=== PATIENT | female | born 1985 | race Caucasian/White ===

== ENCOUNTER 2016-03-16 17:01 | Emergency (ER) | payer MEDICAID ==
[2012-11-17 21:42] VITALS: BMI 29.4
[~2016-03-16 17:01] MED LIST: FLAGYL500 MG PO; LO OVRAL; MINOCIN100 MG PO; MOTRIN600 MG PO; PERCOCET 2.5/321 TAB PO; VICODIN 5/500 T1 TAB PO; [UNRECOGNIZED DRUG - OTHER]
== END 2016-03-16 18:06 | disposition left against medical advice (07) ==
LOC: D.ER 17:01
DX: G89.18 Other acute postprocedural pain (principal)

== ENCOUNTER 2018-03-04 10:44 | Emergency (ER) | payer MEDICAID ==
[2018-03-04 10:47] VITALS: Ht 162.6 cm
[2018-03-04] MEDS ORDERED: TOPAMAX50 MG PO (10:48)
[2018-03-04] MEDS ORDERED: ZOLOFT25 MG PO (10:49)
[2018-03-04] MEDS ORDERED: PHENERGAN25 MG RC (10:49)
[2018-03-04] MEDS ORDERED: ASPIRIN81 MG (10:49)
[2018-03-04] MEDS ORDERED: KLONOPIN1 MG PO (10:49)
[2018-03-04] MEDS ORDERED: CLEOCIN HCL300 MG PO (12:09)
[2018-03-04] MEDS ORDERED: IBUPROFEN800 MG PO (12:09)
[2018-03-04 12:54] VITALS: BP 128/78
== END 2018-03-04 12:55 | disposition home or self-care (01) ==
LOC: D.ER 10:44
DX: J02.9 Acute pharyngitis, unspecified (principal); S00.81XA Abrasion of other part of head, initial encounter; L08.9 Local infection of the skin and subcutaneous tissue, unspecified; X58.XXXA Exposure to other specified factors, initial encounter; Y93.89 Activity, other specified; Y92.89 Other specified places as the place of occurrence of the external cause

== ENCOUNTER 2018-04-11 21:33 | Emergency (ER) | payer MEDICAID ==
[~2018-04-11] VITALS: Ht 162.6 cm; Wt 71.8 kg
[~2018-04-11 21:33] MED LIST changes: +ASPIRIN81 MG; +CLEOCIN HCL300 MG PO; +IBUPROFEN800 MG PO; +KLONOPIN1 MG PO; +PHENERGAN25 MG RC; +TOPAMAX50 MG PO; +ZOLOFT25 MG PO
[2018-04-11 21:48] VITALS: Ht 162.6 cm; Wt 71.8 kg
[2018-04-12] MEDS ORDERED: TORADOL10 MG PO (00:18)
[2018-04-12 01:03] VITALS: BP 129/87
== END 2018-04-12 00:45 | disposition home or self-care (01) ==
LOC: D.ER 21:33
DX: M25.522 Pain in left elbow (principal); F17.200 Nicotine dependence, unspecified, uncomplicated